=== PATIENT | female | born 1960 | race Caucasian/White ===

== ENCOUNTER 2020-04-25 08:07 | Emergency (ER) | payer OTHER ==
[2020-04-25 09:43] LABS: HEMOGLOBIN 11.4 gm/dl (12.3-15.3); RED BLOOD COUNT 4.05 M/UL (4.00-5.10); WHITE BLOOD COUNT 4.9 K/UL (4.5-11.0)
[2020-04-25 10:17] LABS: BUN/CREATININE RATIO 12 (0-10)
[2020-04-25] MEDS ORDERED: PROVENTIL HFA6.7 GM INH (14:18)
== END 2020-04-25 14:30 | disposition home or self-care (01) ==
LOC: ER1 08:07
PROVIDERS: Physician Assistant
DX: U07.1 COVID-19 (principal); J12.82 Pneumonia due to coronavirus disease 2019; E78.5 Hyperlipidemia, unspecified; K21.9 Gastro-esophageal reflux disease without esophagitis; I10 Essential (primary) hypertension; Z90.89 Acquired absence of other organs
CPT/HCPCS: 36415; 71045; 80053; 82550; 82553; 83874; 84484; 85025; 85379; 93005; 99285; M0239

== ENCOUNTER 2020-05-11 16:54 | Emergency (ER) | payer OTHER ==
[~2020-05-11 16:54] MED LIST: PROVENTIL HFA6.7 GM INH
[2020-05-11 18:03] LABS: HEMOGLOBIN 12.5 gm/dl (12.3-15.3); RED BLOOD COUNT 4.51 M/UL (4.00-5.10); WHITE BLOOD COUNT 5.2 K/UL (4.5-11.0)
[2020-05-11 18:28] LABS: BUN/CREATININE RATIO 21 (0-10)
[2020-05-11] MEDS ORDERED: MOBIC15 MG PO (18:59)
[2020-05-11] MEDS ORDERED: ZITHROMAX250 MG PO (18:59)
[2020-05-11] MEDS ORDERED: ONDANSETRON ODT4 MG SL (18:59)
== END 2020-05-11 19:40 | disposition home or self-care (01) ==
LOC: ER1 16:54
PROVIDERS: Physician Assistant
DX: J18.9 Pneumonia, unspecified organism (principal); R10.12 Left upper quadrant pain; I10 Essential (primary) hypertension; K21.9 Gastro-esophageal reflux disease without esophagitis; Z90.49 Acquired absence of other specified parts of digestive tract; Z90.710 Acquired absence of both cervix and uterus; Z79.899 Other long term (current) drug therapy
CPT/HCPCS: 71045; 80053; 81001; 82550; 82553; 83690; 83874; 84484; 85025; 85379; 93005; 99284

== ENCOUNTER 2021-03-17 11:52 | Emergency (ER) | payer OTHER ==
[~2021-03-17 11:52] MED LIST changes: +MOBIC15 MG PO; +ONDANSETRON ODT4 MG SL; +ZITHROMAX250 MG PO
[2021-03-17 13:00] LABS: HEMOGLOBIN 12.3 gm/dl (12.3-15.3); RED BLOOD COUNT 4.37 M/UL (4.00-5.10); WHITE BLOOD COUNT 7.4 K/UL (4.5-11.0)
[2021-03-17 13:35] LABS: BUN/CREATININE RATIO 24 (0-10)
[2021-03-17] MEDS ORDERED: ZOFRAN 4 MG TAB4 MG PO (17:54)
== END 2021-03-17 18:00 | disposition home or self-care (01) ==
LOC: ER1 11:52
PROVIDERS: Physician Assistant
DX: R55 Syncope and collapse (principal); R07.9 Chest pain, unspecified; K21.9 Gastro-esophageal reflux disease without esophagitis; I10 Essential (primary) hypertension
CPT/HCPCS: 70450; 71045; 80053; 82550; 82553; 83874; 84484; 85025; 85379; 93005; 96374; 99285; J2405

== ENCOUNTER 2021-12-03 14:32 | Emergency (ER) | payer OTHER ==
[~2021-12-03 14:32] MED LIST changes: +ZOFRAN 4 MG TAB4 MG PO
[2021-12-03 15:11] LABS: HEMOGLOBIN 13.1 gm/dl (12.3-15.3); RED BLOOD COUNT 4.7 M/UL (4.00-5.10); WHITE BLOOD COUNT 5.7 K/UL (4.5-11.0)
[2021-12-03 15:39] LABS: BUN/CREATININE RATIO 22 (0-10)
[2021-12-03] MEDS ORDERED: MECLIZINE HCL25 MG PO (19:07)
[2021-12-03] MEDS ORDERED: ONDANSETRON ODT4 MG SL (19:07)
== END 2021-12-03 19:57 | disposition home or self-care (01) ==
LOC: ER1 14:32
DX: I10 Essential (primary) hypertension (principal); R73.9 Hyperglycemia, unspecified; J45.909 Unspecified asthma, uncomplicated; E78.5 Hyperlipidemia, unspecified
CPT/HCPCS: 70450; 71046; 80053; 82550; 82553; 84484; 85025; 85379; 93005; 96374; 96376; 99284; J2405